=== PATIENT | male | born 1960 | race Caucasian/White ===

== ENCOUNTER 2021-05-20 23:10 | Inpatient (IN) | payer MEDICARE ==
[~2021-05-20] VITALS: Ht 177.8 cm; Wt 67.1 kg
--- NOTE | 2021-05-20 23:26 | NUR ---
Pt bib pvt ambulance from [facility]. Pt is on a 5150 hold for medical clearance. pt was able to ambulate to [place] without assist, denies pain, sob or c/p. Able to speak in complete sentences no slurred speech noted.
--- NOTE | 2021-05-20 23:30 | NUR ---
Dr. Estrada in for MSE
[2021-05-20] MEDS ORDERED: HYDR2TAB4 PO (23:39)
[2021-05-20] MEDS ORDERED: TRAM50TA2 PO (23:39)
[2021-05-20] MEDS ORDERED: CYCL5TAB PO (23:39)
[2021-05-20] MEDS ORDERED: ERGO2500 PO (23:39)
[2021-05-20] MEDS ORDERED: CARV3.122 PO (23:39)
[2021-05-20] MEDS ORDERED: ALBU18HF2 INH (23:39)
[2021-05-20] MEDS ORDERED: BETA15CR4 TP (23:39)
[2021-05-20] MEDS ORDERED: ESCI20TA44 PO (23:39)
[2021-05-20] MEDS ORDERED: QUET25TA PO (23:39)
[2021-05-20] MEDS ORDERED: TAMS-3 PO (23:39)
[2021-05-20] MEDS ORDERED: FLUT100D IH (23:39)
[2021-05-20] MEDS ORDERED: MULT-594 PO (23:39)
[2021-05-20 23:54] LABS: MEAN CORPUSCULAR HEMOGLOBIN 33.2 uug (23.8-33.4); MEAN CORPUSCULAR VOLUME 97.4 fL (73.0-96.2); PLATELET COUNT (AUTO) 189 K/uL (152-348)
[2021-05-20 23:59] LABS: CARBON DIOXIDE 29 mmol/L (21-32); CHLORIDE 101 mmol/L (98-107); CREATININE 0.7 mg/dL (0.6-1.3); GLUCOSE 110 mg/dL (74-106); UREA NITROGEN, BLOOD 20 mg/dL (7-18)
[2021-05-21 00:05] LABS: ALANINE AMINOTRANSFERASE 51 U/L (16-63); ALKALINE PHOSPHATASE 117 U/L (50-136); ASPARTATE AMINOTRANSFERASE 48 U/L (15-37); BILIRUBIN,DIRECT 0.1 mg/dL (0.0-0.2); BILIRUBIN,TOTAL 0.4 mg/dL (0.2-1.0); TOTAL PROTEIN, SERUM 7.2 g/dL (6.4-8.2)
[2021-05-21 00:08] LABS: ACETAMINOPHEN < 2.0 ug/mL (10-30)
[2021-05-21 00:09] LABS: *BILIRUBIN,URIN NEGATIVE (NEGATIVE); *BLOOD, URINE NEGATIVE (NEGATIVE); *CLARITY,URINE CLEAR (CLEAR); *COLOR,URINE YELLOW (YELLOW); *KETONES,URINE NEGATIVE (NEGATIVE); *UROBILINOGEN,URINE 0.2 E.U./dl (NORMAL); LEUKOCYTE ESTERASE ,URINE NEGATIVE (NEGATIVE); NITRITE, URINE NEGATIVE (NEGATIVE); PH,URINE 5.5 (5.0-8.0); UGLUCOSE NEGATIVE (NEGATIVE)
[2021-05-21 00:12] LABS: THYROID STIMULATING HORMONE 1.205 mIU/mL (0.358-3.740)
[2021-05-21] MEDS ORDERED: HYDROMORPHONE 1 MG/1 ML DISP.SYRIN IM ONE (00:15)
--- NOTE | 2021-05-21 00:18 | NUR ---
Pt medically cleared by Dr. Estrada.
[2021-05-21] MEDS ORDERED: HYDROMORPHONE 2 MG/1 ML DISP.SYRIN ONE (00:19)
[2021-05-21 00:20] LABS: ETHANOL < 3 MG/DL (0-0)
[2021-05-21 00:32] LABS: *AMPHETAMINE, URINE NEGATIVE (NEGATIVE); *CANNABINOID, URINE NEGATIVE (NEGATIVE); *COCCAINE, URINE NEGATIVE (NEGATIVE); *OPIATE, URINE POSITIVE (NEGATIVE); *PHENCYCLIDINE SCREEN,URINE NEGATIVE (NEGATIVE)
--- NOTE | 2021-05-21 00:41 | NUR ---
report given to Yokasta PAGE pt to go to [facility] room 141 B.
[2021-05-21 01:00] VITALS: BP 125/72
--- NOTE | 2021-05-21 01:30 | NUR ---
GPS ADMISSION NOTE : Patient is a 60 year old male, brought to the ER from [facility] . The patient is on a 5150 for DTS. Per the hold, this patient had gotten into an argument with his . Following that, he had an intentional overdose of Vodka and Dilaudid. The hospital records show that patient suffered a cardiac arrest and was intubated in the ICU. This patient lives in a car with his who is hearing impaired. The patient states he has been having trouble with his and is always in extreme pain. Upon face to face evaluation, the patient appeared depressed and solemn. When interviewed the patient made comments about feeling "Hopeless " and having depression his whole life. Poor eye contact noted.The patient talked about his having OCD behaviors and does not validate him or listen to him. The patient did make a contract for safety with this insurance underwriter sales for next 24 hours. Safety stratiges are in place. A Patients rights handbook and the Patients Advisement was provided. Unit rules and plan of care discussed. VS are stable and Frequent rounding done to ensure a safe environment.
[2021-05-21] MEDS ORDERED: ZOLPIDEM 5 MG TABLET PO PRN (02:15)
[2021-05-21] MEDS ORDERED: LORAZEPAM 1 MG TABLET PO PRN (02:15)
[2021-05-21] MEDS ORDERED: MAGNESIUM HYDROXIDE 30 ML LIQUID UDC PO PRN (02:15)
[2021-05-21] MEDS ORDERED: MAG HYDROX/AL HYDROX/SIMETH 30 ML LIQUID UDC PO PRN (02:15)
[2021-05-21] MEDS: NICOTINE 21 MG/24HR PATCH TD SCH ×2 (02:27→09:05)
[2021-05-21] MEDS ORDERED: ZOLPIDEM 5 MG TABLET ONE (02:36)
[2021-05-21] MEDS ORDERED: ALBUTEROL SULFATE 8 GM HFA.AER.AD INH PRN (05:30)
--- NOTE | 2021-05-21 06:11 | NUR ---
GPS: Remain calm and cooperative. denies si @ this time. slept 1.15 hrs through the night. resting in bed comfortably. continue plan of care.
[2021-05-21] MEDS ORDERED: ALBUTEROL SULFATE 1.25 MG/3 ML NEBU NEB PRN (07:00)
[2021-05-21 07:30] VITALS: BP 90/51
[2021-05-21] MEDS ORDERED: Medication Not On Formulary EA (Multivitamins (Multivitamin) 1 TAB) PO SCH (09:00)
[2021-05-21] MEDS ORDERED: Medication Not On Formulary EA (Cyclobenzaprine Hcl 10 MG) PO SCH (09:00)
[2021-05-21] MEDS: CYCLOBENZAPRINE HCL 10 MG TABLET PO SCH ×2 (09:05→16:15)
[2021-05-21] MEDS: HYDROMORPHONE HCL 2 MG TABLET PO SCH ×2 (09:05→20:15)
[2021-05-21] MEDS: MULTIVITAMINS,THERAPEUTIC TABLET PO SCH (09:05)
[2021-05-21] MEDS ORDERED: diphenhydrAMINE 50 MG CAPSULE PO PRN (09:30)
[2021-05-21] MEDS: DULOXETINE 30 MG CAPSULE.DR PO SCH (10:15)
[2021-05-21] MEDS: CARVEDILOL 3.125 MG TABLET PO SCH ×2 (11:00→17:19)
--- NOTE | 2021-05-21 13:24 | NUR ---
GPS: Nursing Notes: Destructive Behavior to Self: Patient is awake and responding to his name, depressed mood and sad affect, believes that he is here because has an argument with his and overdose with his medication and alcohol, stated " I do suffer from depression..", verbally jodie for safety, denies SI, isolative and withdrawn in his room, needs a lot of prompting to come out of his room, refusing to participate in therapeutic groups, low energy level, poor eyes contact, unkempt appearance, laying down on his bed and covering his head with his blanket, unable to formulate a viable plan for self care, continue with treatment plan.
[2021-05-21] MEDS: TRAMADOL HCL 50 MG TABLET PO PRN ×2 (13:28→23:13)
[2021-05-21 15:44] VITALS: BP 104/58
[2021-05-21 20:00] VITALS: BP 108/63
[2021-05-21] MEDS: QUETIAPINE FUMARATE 25 MG TABLET PO SCH (20:13)
[2021-05-21] MEDS: TAMSULOSIN HCL 0.4 MG CAP.SR.24H PO SCH (20:14)
[2021-05-21] MEDS: ACETAMINOPHEN 325 MG TABLET PO PRN (20:14)
--- NOTE | 2021-05-22 03:26 | NUR ---
The patient continues to be depressed, but was willing to make a contract for safety with this conventional mortgage underwriter, denying active SI. t Deputy Sheriff Chief was able to encourage the patient to come out of his room to the day room and have a snack. The patient only stayed out about 15 minutes , then returned to his room. Safety stratiges are in place. The patient does c/o pain frequently and is being medicated per order.The patient is withdrawn , has poor eye contact , and not willing to engage in any meaningful conversation tonight. Frequent rounding is in place to ensure a safe environment.
[2021-05-22 07:30] VITALS: BP 109/67
[2021-05-22] MEDS ORDERED: FLUTICASONE/SALMETEROL 250/50 INHALER INH SCH (09:00)
[2021-05-22] MEDS: CYCLOBENZAPRINE HCL 10 MG TABLET PO SCH ×2 (09:11→16:46)
[2021-05-22] MEDS: NICOTINE 21 MG/24HR PATCH TD SCH (09:11)
[2021-05-22] MEDS: MULTIVITAMINS,THERAPEUTIC TABLET PO SCH (09:11)
[2021-05-22] MEDS: DULOXETINE 30 MG CAPSULE.DR PO SCH (09:11)
[2021-05-22] MEDS: THIAMINE HCL 100 MG TABLET PO SCH (09:11)
[2021-05-22] MEDS: CARVEDILOL 3.125 MG TABLET PO SCH ×2 (09:12→16:03)
[2021-05-22] MEDS: FENOFIBRATE NANOCRYSTALLIZED 48 MG TABLET PO SCH (09:13)
[2021-05-22] MEDS: HYDROMORPHONE HCL 2 MG TABLET PO SCH ×2 (09:14→20:20)
[2021-05-22] MEDS: FLUTICASONE/VILANTEROL 1 EACH BLST.W.DEV INH SCH (09:14)
[2021-05-22 15:10] VITALS: BP 98/55
[2021-05-22 20:00] VITALS: BP 114/72
[2021-05-22] MEDS: ATORVASTATIN 10 MG TABLET PO SCH (20:21)
[2021-05-22] MEDS: QUETIAPINE FUMARATE 25 MG TABLET PO SCH (20:21)
[2021-05-22] MEDS: TAMSULOSIN HCL 0.4 MG CAP.SR.24H PO SCH (20:21)
[2021-05-23 07:30] VITALS: BP 122/78
[2021-05-23] MEDS: THIAMINE HCL 100 MG TABLET PO SCH (08:48)
[2021-05-23] MEDS: NICOTINE 21 MG/24HR PATCH TD SCH (08:48)
[2021-05-23] MEDS: CYCLOBENZAPRINE HCL 10 MG TABLET PO SCH ×2 (08:49→17:01)
[2021-05-23] MEDS: HYDROMORPHONE HCL 2 MG TABLET PO SCH ×2 (08:49→20:27)
[2021-05-23] MEDS: MULTIVITAMINS,THERAPEUTIC TABLET PO SCH (08:49)
[2021-05-23] MEDS: DULOXETINE 30 MG CAPSULE.DR PO SCH (08:49)
[2021-05-23] MEDS: FENOFIBRATE NANOCRYSTALLIZED 48 MG TABLET PO SCH (08:52)
[2021-05-23] MEDS: FLUTICASONE/VILANTEROL 1 EACH BLST.W.DEV INH SCH (08:53)
[2021-05-23] MEDS: CARVEDILOL 3.125 MG TABLET PO SCH ×2 (08:53→17:02)
--- NOTE | 2021-05-23 09:55 | NUR ---
SW Initial Discharge Plan Pt is currently homeless and living in the car with his in the [place] area. Pt is unsure where he and his will go after he is discharged from the hospital. Pt reports working with community organization in [place] with housing assistance. SW will continue to work with pt, family, and MD to ensure a safe and proper discharge plan.
--- NOTE | 2021-05-23 10:08 | NUR ---
SW Family Contact ADDISON spoke with patient's father, Levon Shah ([phone]) and discussed treatment and discharge plan. Levon was provided information on visiting hours. ADDISON will contact Levon with any updates to discharge plan.
--- NOTE | 2021-05-23 10:10 | NUR ---
Firearms Report: [employer] Weeds And Pest Inspector completed and submitted a DOJ firearms report for 5150 danger to self certifications. A copy of report has been placed in patient chart.
--- NOTE | 2021-05-23 10:26 | NUR ---
SW Brief Substance Abuse Intervention Patient was provided with a brief substance abuse intervention and referred to the following substance abuse programs: [facility] ([phone]), [address] [address] ([phone]); [place] [address], [place] [address] ([phone]); .
--- NOTE | 2021-05-23 13:35 | NUR ---
GPS: Nursing Notes: Destructive Behavior to Self: Patient is awake and responding to his name, isolative and withdrawn in his room, no interactions with peers, low energy level, unkempt appearance, refusing to participate in therapeutic groups, needs a lot of prompting to come out of his room, walking on the hallway and then back to his room, compliant with his medications, verbally jodie for safety, denies SI, continue to monitor for safety, unable to formulate a viable plan for self care, continue with treatment plan.
[2021-05-23 15:23] VITALS: BP 110/68
[2021-05-23 20:11] VITALS: BP 126/85
[2021-05-23] MEDS: ATORVASTATIN 10 MG TABLET PO SCH (20:52)
[2021-05-23] MEDS: QUETIAPINE FUMARATE 25 MG TABLET PO SCH (20:52)
[2021-05-23] MEDS: TAMSULOSIN HCL 0.4 MG CAP.SR.24H PO SCH (20:52)
[2021-05-24 07:30] VITALS: BP 105/66
[2021-05-24] MEDS: THIAMINE HCL 100 MG TABLET PO SCH (08:38)
[2021-05-24] MEDS: FENOFIBRATE NANOCRYSTALLIZED 48 MG TABLET PO SCH (08:38)
[2021-05-24] MEDS: MULTIVITAMINS,THERAPEUTIC TABLET PO SCH (08:39)
[2021-05-24] MEDS: HYDROMORPHONE HCL 2 MG TABLET PO SCH ×2 (08:39→21:22)
[2021-05-24] MEDS: CARVEDILOL 3.125 MG TABLET PO SCH ×2 (08:40→16:54)
[2021-05-24] MEDS: CYCLOBENZAPRINE HCL 10 MG TABLET PO SCH ×2 (08:40→16:52)
[2021-05-24] MEDS: NICOTINE 21 MG/24HR PATCH TD SCH (08:40)
[2021-05-24] MEDS: FLUTICASONE/VILANTEROL 1 EACH BLST.W.DEV INH SCH (08:41)
[2021-05-24] MEDS ORDERED: DULOXETINE 30 MG CAPSULE.DR PO SCH (09:00)
[2021-05-24] MEDS: DULOXETINE 60 MG CAPSULE.DR PO SCH (09:28)
[2021-05-24 15:13] VITALS: BP 112/69
--- NOTE | 2021-05-24 16:02 | NUR ---
Court Hearing Patient court hearing for 5250 hearing was today and it was upheld for GD and danger to himself.
[2021-05-24] MEDS: TRAMADOL HCL 50 MG TABLET PO PRN (16:53)
[2021-05-24 19:43] VITALS: BP 115/68
[2021-05-24] MEDS: ATORVASTATIN 10 MG TABLET PO SCH (21:22)
[2021-05-24] MEDS: QUETIAPINE FUMARATE 25 MG TABLET PO SCH (21:22)
[2021-05-24] MEDS: TAMSULOSIN HCL 0.4 MG CAP.SR.24H PO SCH (21:22)
[2021-05-25 07:50] VITALS: BP 109/65
[2021-05-25] MEDS: DULOXETINE 60 MG CAPSULE.DR PO SCH (08:14)
[2021-05-25] MEDS: NICOTINE 21 MG/24HR PATCH TD SCH (08:14)
[2021-05-25] MEDS: FENOFIBRATE NANOCRYSTALLIZED 48 MG TABLET PO SCH (08:14)
[2021-05-25] MEDS: CYCLOBENZAPRINE HCL 10 MG TABLET PO SCH ×2 (08:15→16:40)
[2021-05-25] MEDS: THIAMINE HCL 100 MG TABLET PO SCH (08:15)
[2021-05-25] MEDS: MULTIVITAMINS,THERAPEUTIC TABLET PO SCH (08:16)
[2021-05-25] MEDS: HYDROMORPHONE HCL 2 MG TABLET PO SCH ×2 (08:16→20:07)
[2021-05-25] MEDS: CARVEDILOL 3.125 MG TABLET PO SCH ×2 (08:17→16:40)
[2021-05-25] MEDS: FLUTICASONE/VILANTEROL 1 EACH BLST.W.DEV INH SCH (08:20)
--- NOTE | 2021-05-25 16:12 | NUR ---
Received patient awake in his room. A/O X 2 to person, place. Pt. affect is guarded, passive, isolative. Compliant with medications. Ambulates with minimal assistance. Reassurance given. Fall and safety precautions implemented.
[2021-05-25 16:51] VITALS: BP 113/69
[2021-05-25] MEDS: ATORVASTATIN 10 MG TABLET PO SCH (20:05)
[2021-05-25] MEDS: QUETIAPINE FUMARATE 25 MG TABLET PO SCH (20:05)
[2021-05-25] MEDS: TAMSULOSIN HCL 0.4 MG CAP.SR.24H PO SCH (20:05)
[2021-05-25 21:04] VITALS: BP 136/70
[2021-05-26 07:30] VITALS: BP 107/67
[2021-05-26] MEDS: CARVEDILOL 3.125 MG TABLET PO SCH ×2 (09:00→16:28)
[2021-05-26] MEDS: NICOTINE 21 MG/24HR PATCH TD SCH (09:07)
[2021-05-26] MEDS: THIAMINE HCL 100 MG TABLET PO SCH (09:07)
[2021-05-26] MEDS: CYCLOBENZAPRINE HCL 10 MG TABLET PO SCH ×2 (09:07→16:27)
[2021-05-26] MEDS: MULTIVITAMINS,THERAPEUTIC TABLET PO SCH (09:07)
[2021-05-26] MEDS: FENOFIBRATE NANOCRYSTALLIZED 48 MG TABLET PO SCH (09:07)
[2021-05-26] MEDS: FLUTICASONE/VILANTEROL 1 EACH BLST.W.DEV INH SCH (09:09)
[2021-05-26] MEDS: DULOXETINE 60 MG CAPSULE.DR PO SCH (09:09)
[2021-05-26] MEDS: HYDROMORPHONE HCL 2 MG TABLET PO SCH ×2 (09:09→20:19)
--- NOTE | 2021-05-26 15:52 | NUR ---
Hps/[employer] Remains isolative,compliant with routine meds. interacts when engage d. Patient was able to talked to his father Levon. Adequate relief from lower back pain.Safety reviewed.
[2021-05-26 16:00] VITALS: BP 102/65
[2021-05-26 20:02] VITALS: BP 106/62
[2021-05-26] MEDS: ATORVASTATIN 10 MG TABLET PO SCH (20:19)
[2021-05-26] MEDS: TAMSULOSIN HCL 0.4 MG CAP.SR.24H PO SCH (20:19)
[2021-05-26] MEDS: QUETIAPINE FUMARATE 25 MG TABLET PO SCH (20:19)
[2021-05-27 07:30] VITALS: BP 95/53
[2021-05-27] MEDS: MULTIVITAMINS,THERAPEUTIC TABLET PO SCH (08:18)
[2021-05-27] MEDS: NICOTINE 21 MG/24HR PATCH TD SCH (08:18)
[2021-05-27] MEDS: THIAMINE HCL 100 MG TABLET PO SCH (08:18)
[2021-05-27] MEDS: CYCLOBENZAPRINE HCL 10 MG TABLET PO SCH ×2 (08:18→16:58)
[2021-05-27] MEDS: FLUTICASONE/VILANTEROL 1 EACH BLST.W.DEV INH SCH (08:18)
[2021-05-27] MEDS: FENOFIBRATE NANOCRYSTALLIZED 48 MG TABLET PO SCH (08:18)
[2021-05-27] MEDS: DULOXETINE 60 MG CAPSULE.DR PO SCH (08:18)
[2021-05-27] MEDS: CARVEDILOL 3.125 MG TABLET PO SCH ×2 (08:19→16:58)
[2021-05-27] MEDS: HYDROMORPHONE HCL 2 MG TABLET PO SCH ×2 (08:19→20:02)
[2021-05-27] MEDS ORDERED: ERGOCALCIFEROL 50,000 UNIT CAPSULE PO SCH (09:00)
[2021-05-27] MEDS ORDERED: ARIPIPRAZOLE 5 MG TABLET PO SCH (09:00)
[2021-05-27] MEDS: ARIPIPRAZOLE 2 MG TABLET PO SCH (09:26)
--- NOTE | 2021-05-27 12:02 | NUR ---
SW SNF Referral SW faxed patient's referral packet to [facility] [address] [facility], [place] [address] ( ) attention to Karol for review.
--- NOTE | 2021-05-27 13:58 | NUR ---
SW Discharge Plan Update SW spoke with Marisela, head start coordinator at [facility] [address] [facility], [place] [address] ([phone]) who informed facility is able to accept pt, pending insurance clearance.
[2021-05-27 17:06] VITALS: BP 112/67
[2021-05-27] MEDS: TAMSULOSIN HCL 0.4 MG CAP.SR.24H PO SCH (20:00)
[2021-05-27] MEDS: TRAZODONE 50 MG TABLET PO SCH (20:01)
[2021-05-27] MEDS: ATORVASTATIN 10 MG TABLET PO SCH (20:01)
[2021-05-27 20:25] VITALS: BP 115/71
[2021-05-28 07:30] VITALS: BP 126/76
[2021-05-28] MEDS: MULTIVITAMINS,THERAPEUTIC TABLET PO SCH (08:26)
[2021-05-28] MEDS: CARVEDILOL 3.125 MG TABLET PO SCH ×2 (08:26→17:02)
[2021-05-28] MEDS: ARIPIPRAZOLE 2 MG TABLET PO SCH (08:26)
[2021-05-28] MEDS: THIAMINE HCL 100 MG TABLET PO SCH (08:26)
[2021-05-28] MEDS: CYCLOBENZAPRINE HCL 10 MG TABLET PO SCH ×2 (08:26→17:01)
[2021-05-28] MEDS: NICOTINE 21 MG/24HR PATCH TD SCH (08:27)
[2021-05-28] MEDS: HYDROMORPHONE HCL 2 MG TABLET PO SCH ×2 (08:27→20:38)
[2021-05-28] MEDS: DULOXETINE 60 MG CAPSULE.DR PO SCH (08:28)
[2021-05-28] MEDS: FENOFIBRATE NANOCRYSTALLIZED 48 MG TABLET PO SCH (08:29)
[2021-05-28] MEDS: FLUTICASONE/VILANTEROL 1 EACH BLST.W.DEV INH SCH (08:37)
--- NOTE | 2021-05-28 09:00 | NUR ---
RECEIVED PATIENT IN BED IN ROOM AWAKE ALERT AND ORIENTED COOPERATIV AND COMPLIANT WITH MEDICATIONS AND CARE DENIES SI ENCOURAGED TO GO TO THE D/ROOM AND TO PARTICIPATE IN ACTIVITIES AND HE EXPRESSED UNDERSTANDING.
[2021-05-28 11:52] LABS: CARBON DIOXIDE 32 mmol/L (21-32); CHLORIDE 101 mmol/L (98-107); CREATININE 0.6 mg/dL (0.6-1.3); GLUCOSE 149 mg/dL (74-106); MAGNESIUM 2.2 mg/dL (1.8-2.4); POTASSIUM 4.2 mmol/L (3.5-5.1); UREA NITROGEN, BLOOD 13 mg/dL (7-18)
[2021-05-28 16:00] VITALS: BP 111/63
--- NOTE | 2021-05-28 17:57 | NUR ---
ALERT ORIENTED IN ROOM WAS WALKING IN THE HALLWAY EARLIER AT TIMES WITHOUT WALKER PATIENT INSTRUCTED TO USE THE WALKER FOR SAFETY AND HE EXPRESSED UNDERSTANDING HE HAS BEEN COMPLIANT WITH MDICATIONS AND CARE WILL CONTINUE TO OBSERVE AND PROVIDE SAFETY.
[2021-05-28 20:00] VITALS: BP 113/75
[2021-05-28] MEDS: TAMSULOSIN HCL 0.4 MG CAP.SR.24H PO SCH (20:37)
[2021-05-28] MEDS: ATORVASTATIN 10 MG TABLET PO SCH (20:37)
[2021-05-28] MEDS: TRAZODONE 50 MG TABLET PO SCH (20:38)
[2021-05-29 08:05] VITALS: BP 141/83
[2021-05-29] MEDS: DULOXETINE 60 MG CAPSULE.DR PO SCH (08:17)
[2021-05-29] MEDS: CARVEDILOL 3.125 MG TABLET PO SCH ×2 (08:17→17:00)
[2021-05-29] MEDS: NICOTINE 21 MG/24HR PATCH TD SCH (08:17)
[2021-05-29] MEDS: THIAMINE HCL 100 MG TABLET PO SCH (08:18)
[2021-05-29] MEDS: HYDROMORPHONE HCL 2 MG TABLET PO SCH ×2 (08:18→20:06)
[2021-05-29] MEDS: FLUTICASONE/VILANTEROL 1 EACH BLST.W.DEV INH SCH (08:18)
[2021-05-29] MEDS: FENOFIBRATE NANOCRYSTALLIZED 48 MG TABLET PO SCH (08:18)
[2021-05-29] MEDS: CYCLOBENZAPRINE HCL 10 MG TABLET PO SCH ×2 (08:18→17:01)
[2021-05-29] MEDS: ARIPIPRAZOLE 2 MG TABLET PO SCH (08:18)
[2021-05-29] MEDS: MULTIVITAMINS,THERAPEUTIC TABLET PO SCH (08:18)
[2021-05-29 16:04] VITALS: BP 103/60
[2021-05-29 20:00] VITALS: BP 100/64
[2021-05-29] MEDS: ATORVASTATIN 10 MG TABLET PO SCH (20:04)
[2021-05-29] MEDS: TAMSULOSIN HCL 0.4 MG CAP.SR.24H PO SCH (20:04)
[2021-05-29] MEDS: TRAZODONE 50 MG TABLET PO SCH (20:04)
[2021-05-29 20:30] VITALS: BP 110/64
[2021-05-29 23:00] VITALS: BP 143/91
--- NOTE | 2021-05-29 23:10 | NUR ---
Pt got up to use the bathroom .Suddenly, he felt dizzy like a " spinning " sensation. At that point he went down on the floor in a sitting position, landing on his buttocks .Pt was examined, and he verified that he didn't hit his head .Body was checked, no bruise's or bumps noted. However, he did sustained a small skin tear on top of his right hand, size about 1 cm . A band aide was applied at that time. Patient has full range of motion, Nerve and circulation normal, Pupils are equal and reactive to light. Pt was is able to walk back to his bed with staff software engineer. No complaints of pain, or distress of any kind.V/S BP:143/91 T:97.6 P:117 R:19 O2 Sat :98%RA.Nursing Sports Physiotherapist and Toby Cyr NP were notified.Will continue to monitor.
[2021-05-29] MEDS ORDERED: MECLIZINE HCL 25 MG TABLET PO PRN (23:15)
[2021-05-29] MEDS ORDERED: IV NS 1000 ML 1,000 ML IV ONE (23:15)
[2021-05-29 23:26] LABS: HEMATOCRIT 36.1 % (36.7-47.1); MEAN CORPUSCULAR VOLUME 96.7 fL (73.0-96.2); PLATELET COUNT (AUTO) 240 K/uL (152-348)
[2021-05-29 23:33] LABS: POTASSIUM 4.6 mmol/L (3.5-5.1)
[2021-05-30] MEDS ORDERED: MECLIZINE HCL 25 MG TABLET ONE (00:04)
[2021-05-30 02:51] VITALS: BP 124/75
[2021-05-30] MEDS: ACETAMINOPHEN 325 MG TABLET PO PRN (02:53)
--- NOTE | 2021-05-30 06:24 | NUR ---
RESTING WITH EYES CLOSED, RESP.EVEN AND UNLABORED.IN NO ACUTE DISTRESS AND NO FURTHER C/O DIZZY OR PAIN.WILL CONTINUE TO MONITOR FOR ANY CHANGES.
[2021-05-30 07:28] VITALS: BP 116/66
[2021-05-30] MEDS: ARIPIPRAZOLE 2 MG TABLET PO SCH (08:07)
[2021-05-30] MEDS: MULTIVITAMINS,THERAPEUTIC TABLET PO SCH (08:07)
[2021-05-30] MEDS: CYCLOBENZAPRINE HCL 10 MG TABLET PO SCH ×2 (08:07→16:49)
[2021-05-30] MEDS: THIAMINE HCL 100 MG TABLET PO SCH (08:08)
[2021-05-30] MEDS: HYDROMORPHONE HCL 2 MG TABLET PO SCH ×2 (08:08→20:16)
[2021-05-30] MEDS: FENOFIBRATE NANOCRYSTALLIZED 48 MG TABLET PO SCH (08:09)
[2021-05-30] MEDS: DULOXETINE 60 MG CAPSULE.DR PO SCH (08:09)
[2021-05-30] MEDS: CARVEDILOL 3.125 MG TABLET PO SCH ×2 (08:09→16:51)
[2021-05-30] MEDS: NICOTINE 21 MG/24HR PATCH TD SCH (08:09)
[2021-05-30] MEDS: FLUTICASONE/VILANTEROL 1 EACH BLST.W.DEV INH SCH (08:10)
--- NOTE | 2021-05-30 10:43 | NUR ---
Patient orthostatic blood pressure is: Supine 115/65, sitting 101/56, standing 81/47.
[2021-05-30 10:50] VITALS: BP_SYST 101; BP_SYST 115; BP_DIAS 56; BP_DIAS 65
[2021-05-30 10:51] VITALS: BP 81/47
[2021-05-30] MEDS ORDERED: IV NS 1000 ML 1,000 ML IV ONE (12:00)
--- NOTE | 2021-05-30 12:29 | NUR ---
Patient orthostatic blood pressure is 81/47 in standing position, and BOOTH MANAGER Toby Cyr ordered Normal Saline 1 liter running at 100 bolus, will be monitored for effectiveness.
--- NOTE | 2021-05-30 15:21 | NUR ---
Pt. is received awake in his room. A/O X 3 -4 to person, place, environment, situation. Pt. affect is isolative, depressed, withdrawn, cooperative. Patient father Levon called back the unit, around 11:00 am, and was notified about his fall last night. Patient denies pain or any discomfort. Denies SI. Ambulates without assistance. Requires minimal assistance with ADL. Emotional support provided. Fall and safety precautions implemented.
[2021-05-30 15:55] VITALS: BP 108/67
[2021-05-30 20:00] VITALS: BP 147/85
[2021-05-30] MEDS: TAMSULOSIN HCL 0.4 MG CAP.SR.24H PO SCH (20:15)
[2021-05-30] MEDS: ATORVASTATIN 10 MG TABLET PO SCH (20:15)
[2021-05-30] MEDS: TRAZODONE 50 MG TABLET PO SCH (20:15)
[2021-05-31 07:30] VITALS: BP 120/72
[2021-05-31] MEDS: ARIPIPRAZOLE 2 MG TABLET PO SCH (08:51)
[2021-05-31] MEDS: THIAMINE HCL 100 MG TABLET PO SCH (08:51)
[2021-05-31] MEDS: CARVEDILOL 3.125 MG TABLET PO SCH ×2 (08:51→17:00)
[2021-05-31] MEDS: MULTIVITAMINS,THERAPEUTIC TABLET PO SCH (08:51)
[2021-05-31] MEDS: CYCLOBENZAPRINE HCL 10 MG TABLET PO SCH ×2 (08:51→18:20)
[2021-05-31] MEDS: HYDROMORPHONE HCL 2 MG TABLET PO SCH ×2 (08:52→21:28)
[2021-05-31] MEDS: DULOXETINE 60 MG CAPSULE.DR PO SCH (08:53)
[2021-05-31] MEDS: FENOFIBRATE NANOCRYSTALLIZED 48 MG TABLET PO SCH (08:53)
[2021-05-31] MEDS: FLUTICASONE/VILANTEROL 1 EACH BLST.W.DEV INH SCH (08:53)
[2021-05-31] MEDS: NICOTINE 21 MG/24HR PATCH TD SCH (08:54)
--- NOTE | 2021-05-31 09:28 | NUR ---
GPS: SEEN PT ON GERICHAIR SEATING AND DENIES ANY PAIN OR DISCOMFORT. PT ALERT/ORIENTED X2. PT TEACHING ABOUT ORTHOSTATIC HYPOTENSION. ENCOURAGED PT NOT TO WALK STRAIGHT AFTER LAYING DOWN FROM BED. PT NEEDS TO SIT ON EDGE OF BED FIRST AND AFTER A FEW MINUTES, STAND AND OBSERVE FIRST BEFORE AMBULATING AND TO USE FWW ALWAYS. PER ANIKA, PT MIGHT BE DISCHARGE TODAY. PT COOPERATIVE WITH CARE, COMPLIANT WITH MEDS, CALM AND RELAX. DENIES ANY SI/HOMICIDAL IDEATION.
--- NOTE | 2021-05-31 10:10 | NUR ---
ADDISON Discharge Plan Update ADDISON spoke with Marisela, applications coordinator at [facility] [address] [facility], [place] [address] ([phone]) who informed insurance has been cleared for facility to accept pt. ADDISON spoke with pt's father, Levon Shah ([phone]) and provided updated discharge information. Levon is aware and agreeable with discharge plan. Addendum: 05/31/21 at 1013 by LAMBERTO Beard ADDISON spoke with pt and discussed discharge plan to facility. Pt is aware and agreeable with discharge plan to facility.
--- NOTE | 2021-05-31 10:39 | NUR ---
GPS: PT SEEN BY PHYSICAL THERAPIST. UNABLE TO DO AMBULATION BECAUSE PT BP GOES DOWN TO BP 84/40 HR 134 ON STANDING POSITION AND WHEN SITTING, WITHIN NORMAL LIMITS. PT ENCOURAGED TO DO LOWER EXTREMITIES EXERCISE WHILE SITTING. ENCOURAGED PT TO ASK FOR ASSISTANCE IF PLANNING TO USE TOILET. PT UNDERSTOOD TEACHING PROVIDED.
[2021-05-31 15:25] VITALS: BP 104/63
--- NOTE | 2021-05-31 19:00 | NUR ---
GPS: PT COOPERATIVE WITH CARE AND COMPLIANT WITH MEDICATIONS. BP MEDICATIONS WAS NOT GIVEN PT BLOOD PRESSURE GOES DOWN WHEN PT STANDS. ASSIST PT WITH AMBULATION PT FEELS DIZZY DUE TO HYPOSTATIC HYPOTENSION. ENCOURAGE PT TO ASK FOR ASSISTANCE PT STANDS UP AND FORGETS TO ASK FOR HELP WHEN USING TOILET.
[2021-05-31 21:12] VITALS: BP 132/76
[2021-05-31] MEDS: TAMSULOSIN HCL 0.4 MG CAP.SR.24H PO SCH (21:29)
[2021-05-31] MEDS: ATORVASTATIN 10 MG TABLET PO SCH (21:29)
[2021-05-31] MEDS: TRAZODONE 50 MG TABLET PO SCH (21:29)
[2021-06-01 07:30] VITALS: BP 127/70
[2021-06-01] MEDS: CYCLOBENZAPRINE HCL 10 MG TABLET PO SCH ×2 (08:44→18:06)
[2021-06-01] MEDS: MULTIVITAMINS,THERAPEUTIC TABLET PO SCH (08:44)
[2021-06-01] MEDS: HYDROMORPHONE HCL 2 MG TABLET PO SCH ×3 (08:44→22:53)
[2021-06-01] MEDS: ARIPIPRAZOLE 2 MG TABLET PO SCH (08:44)
[2021-06-01] MEDS: THIAMINE HCL 100 MG TABLET PO SCH (08:44)
[2021-06-01] MEDS: NICOTINE 21 MG/24HR PATCH TD SCH (08:45)
[2021-06-01] MEDS: CARVEDILOL 3.125 MG TABLET PO SCH ×2 (08:45→17:00)
[2021-06-01] MEDS: FLUTICASONE/VILANTEROL 1 EACH BLST.W.DEV INH SCH (09:08)
[2021-06-01] MEDS: FENOFIBRATE NANOCRYSTALLIZED 48 MG TABLET PO SCH (09:08)
[2021-06-01] MEDS: DULOXETINE 60 MG CAPSULE.DR PO SCH (09:08)
--- NOTE | 2021-06-01 10:25 | NUR ---
Social Work Discharge Update Met with patient who is refusing placement. He wants to return to his car with his in [place]. Patient will be given homeless discharge referrals. Patient will discuss his discharge with his today as she calls him once daily and is [id number] per his own report. Discharging RN must please do homeless checklist when patient discharges. Dr Man is aware of this plan and concurs.
[2021-06-01] MEDS: TRAMADOL HCL 50 MG TABLET PO PRN (12:54)
[2021-06-01 16:00] VITALS: BP 106/69
[2021-06-01 20:00] VITALS: BP 121/75
[2021-06-01] MEDS: ATORVASTATIN 10 MG TABLET PO SCH ×2 (21:00→22:53)
[2021-06-01] MEDS ORDERED: TRAZODONE 50 MG TABLET PO SCH (21:00)
[2021-06-01] MEDS: TAMSULOSIN HCL 0.4 MG CAP.SR.24H PO SCH ×2 (21:00→22:53)
[2021-06-01] MEDS: TRAZODONE 100 MG TABLET PO SCH ×2 (21:00→22:53)
--- NOTE | 2021-06-02 06:33 | NUR ---
NSG/GPS Patient remained asleep HS medication held. Patient remained asleep all night unlabored breathing observed will monitor for sedation.
--- NOTE | 2021-06-02 07:26 | NUR ---
ADDISON Discharge Plan Update ADDISON spoke with [facility] ([phone]) and informed pt will not be discharging to [facility]. ADDISON spoke with pt's father, Levon Shah ([phone]) and provided updated discharge information.
--- NOTE | 2021-06-02 07:27 | NUR ---
SW Discharge Note Pt will be discharged to his car with his . Pts will pick pt up at 11 am. Pt is alert and oriented x3 and is aware and agreeable with discharge plans. Pt denies any suicidal or homicidal ideation. Patient signed the homeless waiver upon discharge and a copy was placed in the chart. SW provided patient with a copy of the [facility] homeless directory which provides information on locations for hot meals, sack lunches, food pantries, and showers. ADDISON provided a list of mental health clinics: [facility] [address] [place] [address], ; [facility] [address] [place] [address], ; [facility] [address] [place] [address], ; a list of medical clinics: [facility] [address] [facility] [address], [place]. [place], ; [facility] [address] [facility] [address]; [facility] [address] [place] [place] [address], ; and a list of substance abuse programs: [facility] Substance Abuse Self-helpline ; [facility] ; [facility] ; [facility] ; [facility] ; [facility] [phone]; [facility] [phone]. Patient signed the homeless waiver form and a copy was placed in the chart. ADDISON provided a list of alcohol and drug abuse treatment programs: [facility], [facility] ([phone]), [facility] ([address] [place] [address], ), [place] [facility] ([address] [facility] [facility], [place] [address], [phone]). Pt has also been referred to [address], [place] [address] ([phone]). Pt presents with calm mood and congruent affect.
[2021-06-02 07:30] VITALS: BP 112/72
[2021-06-02] MEDS: NICOTINE 21 MG/24HR PATCH TD SCH (08:47)
[2021-06-02] MEDS: ARIPIPRAZOLE 2 MG TABLET PO SCH (08:48)
[2021-06-02] MEDS: MULTIVITAMINS,THERAPEUTIC TABLET PO SCH (08:48)
[2021-06-02] MEDS: HYDROMORPHONE HCL 2 MG TABLET PO SCH (08:48)
[2021-06-02] MEDS: THIAMINE HCL 100 MG TABLET PO SCH (08:48)
[2021-06-02] MEDS: CYCLOBENZAPRINE HCL 10 MG TABLET PO SCH (08:48)
[2021-06-02 08:49] VITALS: BP 118/72
[2021-06-02] MEDS: FLUTICASONE/VILANTEROL 1 EACH BLST.W.DEV INH SCH (08:49)
[2021-06-02] MEDS: FENOFIBRATE NANOCRYSTALLIZED 48 MG TABLET PO SCH (08:49)
[2021-06-02] MEDS: CARVEDILOL 3.125 MG TABLET PO SCH (08:49)
[2021-06-02] MEDS: DULOXETINE 60 MG CAPSULE.DR PO SCH (08:49)
--- NOTE | 2021-06-02 13:24 | NUR ---
Social Work Discharge Update Patient is now agreeing to discharge to [facility] [address] [facility], [place] ). Family () refused to pick him up. [id number], Genevieve ([phone]) si caring and concerned and her , Shahid, called patient this morning. Shahid is patient's brother called him. Patient will transfer via ambulance later today. Genevieve and family are very appreciative of this placement plan. Dr Man will follow patient at the facility and pt will be assigned to wave guide assembler there. Patient is now agreeable to this discharge plan after family came down on him. Patient is alert and oriented x3, calm and cooperative prior to discharge.
--- NOTE | 2021-06-02 13:42 | NUR ---
GPS: PT AGREED TO BE DISCHARGE TO [facility] AND ALSO PER REQUEST OF HIS BROTHER AND SISTER IN LAW CHRISTIANE. REPORT FOR ADMISSION DONE AT [facility] AND THEY WILL BE EXPECTING THE PT TODAY. CALLED AMBULANCE FOR TRANSFER AND WILL NURSING STAFF DEVELOPMENT COORDINATOR PT AROUND [phone]. PT MADE AWARE, ALERT AND ORIENTED X3. PT DENIES ANY SUICIDAL/ HOMICIDAL IDEATION. DR PATEL MADE AWARE, CHRISTIANE MADE AWARE AND HAPPY ABOUT THE DISCHARGE [facility].
--- NOTE | 2021-06-02 16:14 | NUR ---
GPS; PT ALERT AND ORIENTED X2. PT DISCHARGED AND PICKED UP VIA AMBULANCE TO [facility]. DENIES ANY PAIN OR DISCOMFORT. SIGNED AND RECEIVED ALL THE BELONGINGS.
== END 2021-06-02 16:45 | DRG 885 ==
LOC: ER 23:14 → GPS 05-21 00:55 → EDBD 05-21 00:55
PROVIDERS: ADMIT Psychiatry & Neurology Psychiatry; ATTEND Nurse Practitioner Acute Care
DX: F33.3 Major depressive disorder, recurrent, severe with psychotic symptoms (principal); F10.20 Alcohol dependence, uncomplicated; E11.9 Type 2 diabetes mellitus without complications; E78.1 Pure hyperglyceridemia; I95.1 Orthostatic hypotension; Z20.822 Contact with and (suspected) exposure to COVID-19; Z87.891 Personal history of nicotine dependence; G89.29 Other chronic pain; F19.10 Other psychoactive substance abuse, uncomplicated; Z91.51 Personal history of suicidal behavior; T40.2X2D Poisoning by other opioids, intentional self-harm, subsequent encounter; T51.0X2D Toxic effect of ethanol, intentional self-harm, subsequent encounter; Z59.00 Homelessness unspecified
CPT/HCPCS: 36415; 70030-TC; 71045; 83735; 84443; 85025; 93005; 97161; G0480; J1170; J7030; J8597; Q0163